=== PATIENT | male | born 1930 | race Caucasian/White ===

== ENCOUNTER 2017-10-06 23:27 | Inpatient (IN) | payer MEDICARE ==
[~2017-10-06] VITALS: Ht 165.1 cm; Wt 82.6 kg
--- NOTE | ~2017-10-06 | OP ---
PATIENT NAME: UMAIR MOURA MEDICAL RECORD: [id number] :[birth year] LOCATION:D.M2 D.2126 ADMISSION DATE:10/06/17 SURGEON: MELISSA MORTON MD DATE OF OPERATION: 10/07/2017 PROCEDURES: 1. PTCA stent vein graft to left circumflex. 2. Left heart catheterization. 3. Selective coronary angiography. 4. Left ventriculogram. 5. Vein graft angiography. 6. MONTEIRO angiography. INDICATION: Unstable angina. PROCEDURE IN DETAIL: After informed consent was obtained and after a detailed description of risks, benefits as well as alternative therapies, the patient elected to proceed with angiogram and angioplasty. The right femoral area was prepped and draped in normal sterile fashion. Right femoral artery was cannulated via modified Seldinger technique with placement of 6-Croatian sheath. All catheters exchanged through this sheath. FINDINGS: Left ventriculogram was performed in standard 30-degree BOBO view, reveals global hypokinesis, ejection fraction 30%. SELECTIVE CORONARY ANGIOGRAPHY: 1. Left main is with no significant angiographic disease. 2. There is a ramus intermedius that has 99% stenosis. This is not grafted. 3. The left anterior descending is totally occluded. 4. The left circumflex is totally occluded. 5. The right coronary artery is totally occluded. 6. MONTEIRO to the LAD is widely patent. Distal LAD is widely patent. 7. Vein graft to the circumflex is patent with a 99% stenosis in the proximal vessel. 8. Vein graft to the right coronary artery is patent with 95% stenosis in the proximal vessel. PTCA STENT OF THE VEIN GRAFT TO THE LEFT CIRCUMFLEX: The stent used was a 3.5 x 15 and 4.0 x 18, both Nekoma stents. Result was 0% residual stenosis. OVERALL IMPRESSION: Successful percutaneous transluminal coronary angioplasty stent of the vein graft to the left circumflex going from 99% initial stenosis to 0% residual. PLAN: PTCA stent of the vein graft to the RCA in the a.m. TRANSINT:[id number] Voice Confirmation ID: [id number] DOCUMENT ID: [id number] OPERATIVE REPORT [id number] ZENYMELISSA WRIGHT MD at 1006 CC: [id number] DICTATION DATE: 10/07/17 1156 AIRCRAFT GENERAL REPAIR MECHANIC: 10/07/17 1314 ADM IN [facility] [address] [place] [address]
--- NOTE | ~2017-10-06 | HEMODYNAMI ---
PATIENT:UMAIR MOURA MEDICAL RECORD: [id number] : [birth year] LOCATION:[facility] D.2126 ADMISSION DATE: 10/08/17 Generatedon:10/09/201711:02 Patient name: UMAIR MOURA Patient #: [id number] SSN: : 1930 Date of study: 10/09/2017 Page: Of Hemodynamic Procedure Report Patient Data Patient Demographics Procedure consent was obtained First Name: UMAIR Gender: Male Last Name: ZENY : 1930 Patient #: [id number] Age: 87 year(s) Race: Unknown Additional ID: [id number] Contact details [address]: [address] [place] [address] State: [place] City: [place] Zip code: [address] Past Medical History Allergies Allergen Reaction Date Comments Reported Other allergy 10/09/2017 Iodine, atorvastatin Admission Admission Data Admission Date: 10/08/2017 Admission Time: 14:00 Room #: D.2126 Lab Results Lab Result Date: 10/09/2017 Lab Result Time: 0:00 Biochemistry Name Units Result Min Max BUN mg/dl 33 --(----)-* 7 18 Creatinine mg/dl 1.7 --(----)-* 0.6 1.3 CBC Name Units Result Min Max Hemoglobin g/dl 14.3 --(*---)-- 13.5 17.5 Procedure Procedure Types Cath Procedure Diagnostic Procedure PCI Procedure Coronary Stent AMI/SVG/PITCH GATHERER PTCA or Stent SVG-BMS/HERMELINDA Initial Procedure Description Procedure Date Procedure Date: 10/09/2017 Procedure Start Time: 10:46 Procedure End Time: 11:01 Procedure Staff Name Function Calin Daniels MD Performing Physician Yadiel Partida RT Monitor Roro Varghese RT Scrub Kendra Engel RN Nurse Ottoniel Penn RT Folding Machine Tender Rajiv Fisher RN Folding Machine Tender Procedure Data Cath Procedure Contrast Material Contrast Material Type Amount (ml) Isovue 370 31 Entry Location Entry Primary Successful Side Size Upsize Upsize Entry Closure Succes sful Closure Location (Fr) 1 (Fr) 2 (Fr) Remarks Device Remarks Femoral Left 6 Fr Exoseal artery Short Estimated blood loss: 10 ml Procedure Complications No complications Procedure Medications Medication Administration Route Dosage Solumedrol I.V. 125 mg 0.9% NaCl I.V. 100 ml/hr Oxygen NC 2 l/min Lidocaine 2% added to field 20 Heparin Flush Bag added to field 2 bags (1000units/500ml NS) Pepcid I.V. 20 mg Heparin Bolus I.V. 4000 units Fentanyl I.V. 50 mcg Fentanyl I.V. 50 mcg Hemodynamics Rest Heart Rate: 83 (bpm) Snapshots Pre Cath Intra NCS Post Cath Vital Signs Time Heart Resp SPO2 etCO2 NIBP (mmHg) Rhythm Pain Sedation Rate (ipm) (%) (mmHg) Status Level (bpm) 10:38:56 76 18 98 145/83(108) NSR 0 (11) 10(A) , No pain 10:43:39 80 26 98 24.8 142/87(116) NSR 0 (11) 10(A) , No pain 10:48:18 86 196 97 34.6 141/82(122) NSR 0 (11) 10(A) , No pain 10:53:00 78 14 97 32.3 142/87(107) NSR 0 (11) 10(A) , No pain 10:57:35 83 11 96 28.6 133/89(117) NSR 0 (11) 10(A) , No pain 11:02:16 30.8 No Cuff NSR 0 (11) 10(A) , No pain Medications Time Medication Route Dose Verified Delivered Reason Notes Effectiveness by by 10:37:06 Solumedrol I.V. 125 Calin Gardner Per physician mg Jeremiah Engel RN 10:37:14 0.9% NaCl I.V. 100 Calin Kendra Per physician ml/hr Jeremiah Engel RN 10:37:27 Oxygen NC 2 Calin Gardner used for l/min Jeremiah Engel RN procedure 10:37:41 Lidocaine 2% added 20ml Calin Layton for local to vial Jeremiah Daniels MD anesthetic field 10:37:49 Heparin Flush added 2 Calin Layton used for Bag to bags Jeremiah Daniels MD procedure (1000units/500ml field NS) 10:40:11 Pepcid I.V. 20 mg Calin Gardner Per physician Jeremiah Engel RN 10:43:06 Fentanyl I.V. 50 Calin Gardner for sedation mcg Jeremiah Engel RN 10:46:45 Heparin Bolus I.V. 4000 Calin Gardner for verifi ed units Jeremiah Engel RN anticoagulation with dr daniels 10:51:50 Fentanyl I.V. 50 Calin Gardner for sedation mcg Jeremiah Engel RN Procedure Log Time Note 10:15:52 Ottoniel Penn RT(R) sent for patient. Start room use. 10:21:28 Signed procedure consent form obtained from patient. 10:21:30 Time tracking: Regular hours (M-F 7:00 - 5:00) 10:21:34 Plan of Care:Hemodynamics will remain stable., Cardiac rhythm will remain stable., Comfort level will be maintained., Respiratory function will remain adequate., Patient/ family verbilizes understanding of procedure., Procedure tolerated without complication., Recovers from procedure without complications.. 10:21:52 H&P Date Dictated: 10/06/2017 Within 30 days and on chart.. 10:22:32 Lab Result : Creatinine 1.7 mg/dl 10:22:32 Lab Result : BUN 33 mg/dl 10:22:32 Lab Result : Hemoglobin 14.3 g/dl 10:28:00 Patient received from Med II to CCL 1 Alert and oriented. Tansferred to table in Supine position. 10:28:03 Warm blankets applied, and jeremy hugger turned on for patient comfort. 10:28:04 Correct patient and procedure confirmed by team. 10:28:05 ECG and BP/O2 sat monitors applied to patient. 10:28:34 Pre-procedure instructions explained to patient. 10:28:35 Pre-op teaching completed and patient verbalized understanding. 10:28:36 Family in waiting room. 10:29:15 [facility] a 22 gauge IV catheter with 0.9% NaCl at KVO. 10:37:06 Solumedrol 125 mg I.V. was administered by Kendra Engel RN; Per physician; 10:37:14 0.9% NaCl 100 ml/hr I.V. was administered by Kendra Engel RN; Per physician; 10:37:27 Oxygen 2 l/min NC was administered by Kendra Engel RN; used for procedure; 10:37:41 Lidocaine 2% 20ml vial added to field was administered by Calin Daniels MD; for local anesthetic; 10:37:49 Heparin Flush Bag (1000units/500ml NS) 2 bags added to field was administered by Calin Daniels MD; used for procedure; 10:38:00 Vital chart was started 10:39:44 IV CATHETER 22g opened to sterile field. 10:39:50 Baseline sample Acquired. 10:39:53 Rhythm: sinus rhythm 10:39:55 Full Disclosure recording started 10:40:10 Patient allergic to Other allergyIodine, atorvastatin 10:40:11 Pepcid 20 mg I.V. was administered by Kendra Engel RN; Per physician; 10:40:11 Is the patient allergic to Iodine/contrast media? Yes. 10:40:12 Was the patient premedicated? Yes 10:40:14 Is patient on blood thinner?Yes 10:40:18 ACC The patient was administered the following blood thiners within the last 24 hours: ACCPlavix 10:40:58 Patient diabetic? No. 10:41:02 Previous problem with sedation/anesthesia? No ? 10:41:03 Snore? Yes 10:41:04 Sleep apnea? No 10:41:05 Deviated septum? No 10:41:07 Opens mouth fully? Yes 10:41:08 Sticks out tongue? Yes 10:41:10 Airway obstruction? No ? 10:41:12 Dentures? N/A ? 10:41:13 Dentures? No ? 10:41:16 Pre procedure: left dorsailis pedis pulse 2+ Normal; easily identifiable; not easily obliterated 10:41:18 Patient pain scale 0/10 ?. 10:41:20 Lab results completed and on chart. 10:41:22 Left groin area was prepped with chlora-prep and draped in sterile fashion 10:41:23 Alarms reviewed by R. N. 10:41:23 Sharps counted by scrub and verified by R.N. 10:41:26 ACIST Syringe (67924) opened to sterile field. 10:41:27 Bag Decanter (2002S) opened to sterile field. 10:41:27 Medline Cath Pack ([id number]) opened to sterile field. 10:41:28 DIAGNOSTIC WIRE .035 260cm J wire (708723) opened to sterile field. 10:41:30 ACIST Manifold (33242) opened to sterile field. 10:41:31 ACIST Hand Control (63473) opened to sterile field. 10:41:32 Tegaderm 4 x 4 (1626W) opened to sterile field. 10:41:32 PERCUTANEOUS ENTRY 19GA needle opened to sterile field. 10:41:53 SHEATH Prelude 6Fr 0.035 (HYQ-5S-81-035) opened to sterile field. 10:41:53 INFLATOR Merit BasixCompak (UD3617) opened to sterile field. 10:42:01 CHOICE PT Extra Support 182cm wire ([id number]) opened to sterile field. 10:42:08 Physician arrived 10:42:09 --------ALL STOP TIME OUT------ 10:42:09 Final Timeout: patient, procedure, and site verified with staff and physician. All members of the team are in agreement. 10:42:11 Left groin site verified by team. 10:42:13 Physical assessment completed. ASA score P 2 - A patient with mild systemic disease as per Calin Daniels MD. 10:42:16 Sedation plan: IV Moderate Sedation Medication:Versed, Fentanyl 10:43:06 Fentanyl 50 mcg I.V. was administered by Kendra Engel RN; for sedation; 10:45:05 Zero performed for pressure channel P1 10:46:12 Procedure started. 10:46:16 Local anesthetic to left femerol artery with Lidocaine 2% by Calin Daniels MD.INITIAL ACCESS ONLY 10:46:25 A 6 Fr Short sheath was inserted into the Left Femoral artery 10:46:45 Heparin Bolus 4000 units I.V. was administered by Kendra Engel RN; for anticoagulation; verified with dr daniels 10:47:12 GUIDE 6FR AR 2.0 SH catheter ([id number]) opened to sterile field. 10:47:19 6 Fr AR 2 SH guide catheter was inserted over the wire 10:47:32 choice pt wire advanced. 10:47:55 Wire advanced across lesion. 10:49:54 Inflate balloon Inflation number: 1 A EUPHORA 4.0 x 15 Balloon ([id number]) was prepped and advanced across the Aorta Right -> Dist RCA, then inflated to 9 TUNG for 0:10 (min:sec). 10:50:22 Inflation number: 2 The EUPHORA 4.0 x 15 Balloon ([id number]) was reinflated across the Aorta Right -> Dist RCA, to 9 TUNG for 0:10 (min:sec). 10:50:38 Inflation number: 3 The EUPHORA 4.0 x 15 Balloon ([id number]) was reinflated across the Aorta Right -> Dist RCA, to 23 TUNG for 0:10 (min:sec). 10:51:27 Balloon re-inserted over wire. 10:51:50 Fentanyl 50 mcg I.V. was administered by Kendra Engel RN; for sedation; 10:52:52 Place stent Inflation Number: 4 A PADMA RX 4.0 x 15 stent ([id number]) was prepped and advanced across the Aorta Right -> Dist RCA. The stent was deployed at 23 TUNG for 0:10 (min:sec). 10:55:07 Stent catheter was removed intact over wire. 10:55:08 Wire removed. 10:55:08 Guide catheter removed. 10:55:15 EXOSEAL 6Fr (EX600) opened to sterile field. 10:55:24 Sheath removed intact; hemostasis achieved with Exoseal to the Left Femoral artery. 10:55:25 Procedure ended.(Physican Out) 10:56:27 Contrast amount:Isovue 370 31ml. 10:58:33 Insertion/operative site no bleeding no hematoma. 10:58:35 Post-op/insertion site Left Femoral artery dressed using a 4 x 4 and Tegaderm. 10:58:47 Post left femerol artery:stable, soft, clean and dry 10:58:48 Post Procedure Pulses reassessed and unchanged 10:58:51 Post-procedure physical assessment completed. ASA score P 2 - A patient with mild systemic disease as per Calin Daniels MD. 10:58:54 Post procedure rhythm: unchanged. 11:00:15 Estimated blood loss: 10 ml 11:00:16 Post procedure instruction explained to patient.Patient verbalizes understanding. 11:00:16 Patient needs reinforcement of post procedure teaching. 11:00:27 Procedure type changed to Cath procedure, Diagnostic procedure, PCI procedure, Coronary Stent, AMI/SVG/PITCH GATHERER PTCA or Stent, SVG-BMS/HERMELINDA Initial 11:01:31 Procedure and supply charges have been captured, reviewed, submitted and are correct. 11:01:35 Procedure Complication : No complications 11:01:36 Vital chart was stopped 11:01:37 See physician's report for complete and final results. 11:01:38 Report given to PCU. 11:01:53 Patient transfered to PCU with Stretcher. 11:01:57 Procedure ended. 11:01:57 Full Disclosure recording stopped 11:02:00 End room use (Document Last) Intervention Summary Intervention Notes Time ActionType Lesion and Equipment Used Action# Pressure Duration Attributes 10:49:54 Inflate Aorta Right EUPHORA 4.0 x 1 9 00:10 balloon -> Dist RCA 15 Balloon ([id number]) 10:50:22 Reinflate Aorta Right EUPHORA 4.0 x 2 9 00:10 balloon -> Dist RCA 15 Balloon ([id number]) 10:50:38 Reinflate Aorta Right EUPHORA 4.0 x 3 23 00:10 balloon -> Dist RCA 15 Balloon ([id number]) 10:52:52 Place stent Aorta Right PADMA RX 4.0 x 4 23 00:10 -> Dist RCA 15 stent ([id number]) Device Usage Item Name Manufacture Quantity Catalog Number Hospital Part Current Minimal Lot# / Charge Number Stock Stock Serial# Code IV CATHETER 22g B. Esqueda 1 [id number] [id number] 801843 676027 5 ACIST Syringe Acist 1 05091 213184 746752 974934 20 (24415) [employer] Bag Decanter Microtek 1 2001S 743669 06937 694207 5 () Medical Inc. Medline Cath Cardinal 1 [id number] 461884 92025 972270 5 [facility] ([id number]) DIAGNOSTIC WIRE St Geoff 1 211995 203411 442070 509093 30 .035 260cm J wire (007652) ACIST Manifold Acist 1 67023 101144 340770 546974 5 (04940) [employer] Inc ACIST Hand Acist 1 19254 519994 193297 186376 5 Control (55744) [employer] Systems Inc Tegaderm 4 x 4 3M 1 1626W 063907 253668 117914 5 (1626W) PERCUTANEOUS Cook Medical 1 [id number] 090350 612088 5 ENTRY 19GA needle SHEATH Prelude Merit 1 [id number] 661272 0192483 099362 5 6Fr 0.035 Medical ([id number]-[id number]) INFLATOR Merit Merit 1 AH8236 487803 340940 387295 15 BasixCompak Medical (ZZ6440) CHOICE PT Extra Franklin 1 [id number] 357325 493983 478937 5 Support 182cm Scientific wire ([id number]) GUIDE 6FR AR Medtronic 1 [id number] 899590 14976 214810 1 2.0 SH catheter ([id number]) EUPHORA 4.0 x Medtronic 1 [id number] 751778 588235 642815 5 [id number] 15 Balloon ([id number]) PADMA RX 4.0 x Medtronic 1 [id number] 185913 3776006 456755 5 [id number] 15 stent ([id number]) EXOSEAL 6Fr Cardinal 1 EX600 348592 582050 567290 10 (EX600) Health Signature Audit [place] Stage Time Signature Unsigned Intra-Procedure 10/09/2017 Yadiel Partida 11:02:42 AM RT(R) Signatures Monitor : Yadiel Partida RT Signature : Date : Time : [place] [id number] [facility] [place] [address]
--- NOTE | ~2017-10-06 | DS ---
PATIENT:UMAIR RICO :[birth year] MEDICAL RECORD: [id number] DISCHARGE SUMMARY ADMISSION DATE: 10/08/17 DISCHARGE DATE: 10/10/17 DISCHARGE DIAGNOSES: 1. Angina. 2. Coronary artery disease. 3. Percutaneous transluminal coronary angioplasty stent vein graft to circumflex and right coronary artery this admission. 4. Hyperlipidemia. HOSPITAL COURSE: Mr. Rico presents with unstable angina and found to have significant disease of the vein graft to left circumflex and to the RCA. He underwent successful PTCA stent of both territories, had an uneventful postop course, and discharged home with the addition of aspirin and Plavix to his medical regimen. He will follow up with [facility] in 1 month. TRANSINT:[id number] Voice Confirmation ID: [id number] DOCUMENT ID: [id number] MELISSA MORTON MD at 1630 CC: [id number] DICTATION DATE: 10/10/17 0811 CAKE DECORATOR: 10/10/17 1552 DIS IN 10/10/17 [facility] [address] [place] [address]
--- NOTE | ~2017-10-06 | OP ---
PATIENT NAME: UMAIR MOURA MEDICAL RECORD: [id number] :[birth year] LOCATION:D.M2 D.2126 ADMISSION DATE:10/08/17 SURGEON: MELISSA MORTON MD DATE OF OPERATION: 10/09/2017 PROCEDURES: 1. PTCA stent, vein graft to RCA. 2. Selective coronary and vein graft angiography. INDICATION: Angina and coronary artery disease. DESCRIPTION OF PROCEDURE: After informed consent was obtained and after detailed explanation of risks, benefits as well as alternative therapies, the patient elected to proceed with angiogram and angioplasty. The right femoral area was prepped and draped in normal sterile fashion. Right femoral artery was cannulated via modified Seldinger technique with placement of 6-Haitian sheath. All catheter exchanged through the sheath. FINDINGS: The right coronary vein graft has a 90% stenosis in the proximal aspect. This was addressed with a 4.0 x 15 mm Timothy stent, taken to 23 atmospheres. Result was 0% residual stenosis. OVERALL IMPRESSION: Successful percutaneous transluminal angioplasty stent of the vein graft to the RCA going from 90+ percent initial stenosis to 0% residual stenosis. TRANSINT:[id number] Voice Confirmation ID: [id number] DOCUMENT ID: [id number] MELISSA MORTON MD at 1730 CC: [id number] DICTATION DATE: 10/09/17 1058 BACCARAT MANAGER: 10/09/[address] [facility] [address] [place] [id number]
--- NOTE | ~2017-10-06 | HEMODYNAMI ---
PATIENT:UMAIR MOURA MEDICAL RECORD: [id number] : [birth year] LOCATION:[facility] D.2126 ADMISSION DATE: 10/06/17 Generatedon:10/07/201711:59 Patient name: UMAIR MOURA Patient #: [id number] SSN: : 1930 Date of study: 10/07/2017 Page: Of Hemodynamic Procedure Report Patient Data Patient Demographics Procedure consent was obtained First Name: UMAIR Gender: Male Last Name: ZENY : 1930 Patient #: [id number] Age: 87 year(s) Race: Unknown Additional ID: [id number] Contact details Address: [address] [place] [address] State: [place] City: [place] Zip code: [address] Admission Admission Data Admission Date: 10/06/2017 Admission Time: 23:27 Room #: D.2126 Procedure Procedure Types Cath Procedure Diagnostic Procedure LHC LHC w/Coronaries w/Grafts Sedation Charges Moderate Sedation up to 15 minutes PCI Procedure AMI/SVG/GAS BLENDER PTCA or Stent SVG-BMS/HERMELINDA Initial Procedure Description Procedure Date Procedure Date: 10/07/2017 Procedure Start Time: 11:34 Procedure End Time: 11:56 Procedure Staff Name Function Calin Daniels MD Performing Physician Fabi Sotelo RT Monitor Kendra Engel RN Nurse Cecy Duval RT Scrub Procedure Data Cath Procedure Fluoroscopy Diagnostic fluoroscopy Total fluoroscopy Time: 5.1 time: 5.1 min min Diagnostic fluoroscopy Total fluoroscopy dose: 452 dose: 452 mGy mGy Contrast Material Contrast Material Type Amount (ml) Isovue 300 116 Entry Location Entry Primary Successful Side Size Upsize Upsize Entry Closure Succes sful Closure Location (Fr) 1 (Fr) 2 (Fr) Remarks Device Remarks Femoral Right 5 Fr 6 Fr Exoseal artery Short Estimated blood loss: 5 ml Diagnostic catheters Device Type Used For End Catheter Placement MULTIPACK Pigtail 5 Fr LV Angiography catheter MULTIPACK JL 4.0 5Fr Left Coronary catheter Angiography MULTIPACK 3DRC 5Fr Multi-vessel catheter Angiography DIAGNOSTIC AR 2 MOD 5 Fr Multi-vessel catheter ([id number]) Angiography Procedure Complications No complications Procedure Medications Medication Administration Route Dosage Oxygen etCO2 Nasal cannula 2 l/min Heparin Flush Bag added to field 2 bags (1000units/500ml NS) 0.9% NaCl I.V. 100 ml/hr Plavix P.O. 600 mg Fentanyl I.V. 50 mcg Versed I.V. 1 mg Fentanyl I.V. 50 mcg Versed I.V. 1 mg Heparin Bolus I.V. 5000 units Integrilin (Bolus I.V. 7.3 ml 2mg/ml) Cardene I.C. 300 mcg Nitroglycerin IC/IA I.C. 200 mcg Cardene I.C. 300 mcg Cardene I.C. 300 mcg Integrilin (Bolus wasted 2.7 ml 2mg/ml) Hemodynamics Rest Heart Rate: 88 (bpm) Snapshots Pre Cath Intra NCS Post Cath Vital Signs Time Heart Resp SPO2 etCO2 NIBP (mmHg) Rhythm Pain Sedation Rate (ipm) (%) (mmHg) Status Level (bpm) 11:26:30 86 17 98 0 146/91(113) NSR 0 (11) 10(A) , No pain 11:31:29 92 21 92 23.3 Measuring NSR 0 (11) 10(A) , No pain 11:31:45 93 13 93 19.5 123/102(121) NSR 0 (11) 10(A) , No pain 11:36:08 80 32 88 0 141/71(111) NSR 0 (11) 9(A) , No pain 11:41:07 86 31 96 0 Measuring NSR 0 (11) 9(A) , No pain 11:42:31 84 18 94 15.7 Time NSR 0 (11) 9(A) Exceeded , No pain 11:46:18 82 17 92 24.8 Measuring NSR 0 (11) 9(A) , No pain 11:47:38 83 19 93 24.8 Time NSR 0 (11) 9(A) Exceeded , No pain 11:52:00 94 15 98 21.8 150/66(104) NSR 0 (11) 9(A) , No pain 11:56:12 89 17 96 0 134/80(106) NSR 0 (11) 9(A) , No pain Medications Time Medication Route Dose Verified Delivered Reason Notes Effectiveness by by 11:29:00 Oxygen etCO2 2 Calin Vance Per physician Nasal l/min Jeremiah Fisher RN cannula 11:29:10 Heparin Flush added 2 Calin Vance used for Bag to bags Jeremiah Fisher RN procedure (1000units/500ml field NS) 11:29:22 0.9% NaCl I.V. 100 Calin Vance Per physician ml/hr Jeremiah Fisher RN 11:29:33 Plavix P.O. 600 Calin Vance for mg Jeremiah Fisher RN antiplatelet therapy 11:32:19 Fentanyl I.V. 50 Calin Vance for sedation mcg Jeremiah Fisher RN 11:32:29 Versed I.V. 1 mg Calin Vance for sedation Jeremiah Fisher RN 11:43:20 Fentanyl I.V. 50 Calin Romany for sedation mcg Jeremiah Fisher RN 11:43:24 Versed I.V. 1 mg Calin Vance for sedation Jeremiah Fisher RN 11:43:34 Heparin Bolus I.V. 5000 Calin Vance for units Jeremiah Fishre RN anticoagulation 11:43:48 Integrilin I.V. 7.3 Calin Vance for (Bolus 2mg/ml) ml Jeremiah Fisher RN antiplatelet therapy 11:50:09 Cardene I.C. 300 Calin Vance for mcg Jeremiah Fisher RN vasodilation 11:51:33 Cardene I.C. 300 Calin Romany for mcg Jeremiah Fisher RN vasodilation 11:51:40 Nitroglycerin I.C. 200 Calin Vance for IC/IA pricila Fisher RN vasodilation 11:52:20 Cardene I.C. 300 Calin Rajiv for mcg Jeremiah Fisher RN vasodilation 11:56:31 Integrilin wasted 2.7 Calin Vance for (Bolus 2mg/ml) ml Jeremiah Fisher RN antiplatelet therapy Procedure Log Time Note 10:45:37 Fabi Sotelo RT(R) sent for patient. Start room use. 11:08:38 Time tracking: Regular hours (M-F 7:00 - 5:00) 11:08:42 Plan of Care:Hemodynamics will remain stable., Cardiac rhythm will remain stable., Comfort level will be maintained., Respiratory function will remain adequate., Patient/ family verbilizes understanding of procedure., Procedure tolerated without complication., Recovers from procedure without complications.. 11:11:06 Patient received from PCU to CCL 3 Alert and oriented. Tansferred to table in Supine position. 11:11:07 Warm blankets applied, and jeremy hugger turned on for patient comfort. 11:11:07 Correct patient and procedure confirmed by team. 11:11:09 Signed procedure consent form obtained from patient. 11:11:10 ECG and BP/O2 sat monitors applied to patient. 11:25:11 Vital chart was started 11:25:12 Baseline sample Acquired. 11:25:16 Rhythm: sinus rhythm 11:25:18 Full Disclosure recording started 11:25:22 H&P Date Dictated: 10/07/2017 Within 30 days and on chart., H&P Addendum completed by physician on day of procedure. (MUST COMPLETE FOR ALL OUTPATIENTS). 11:25:24 Pre-procedure instructions explained to patient. 11:25:24 Pre-op teaching completed and patient verbalized understanding. 11:25:26 Family in waiting room. 11:25:28 Patient NPO since Midnight. 11:25:34 Is the patient allergic to Iodine/contrast media? Yes. 11:25:35 Was the patient premedicated? Yes 11:25:36 Is patient on blood thinner?Yes 11:25:40 ACC The patient was administered the following blood thiners within the last 24 hours: ACCPlavix 11:25:43 Patient diabetic? No. 11:25:46 Previous problem with sedation/anesthesia? No ? 11:25:47 Snore? Yes 11:25:48 Sleep apnea? No 11:25:49 Deviated septum? No 11:25:50 Opens mouth fully? Yes 11:25:51 Sticks out tongue? Yes 11:25:55 Airway obstruction? No ? 11:26:01 Dentures? No ? 11:26:05 Pre procedure: right dorsailis pedis pulse 1+ Palpable, but thready & weak; easily obliterated 11:26:07 Pre procedure: left dorsailis pedis pulse 1+ Palpable, but thready & weak; easily obliterated 11:26:08 Patient pain scale 0/10 ?. 11:26:17 IV patent on arrival in right forearm with 0.9% NaCl at [facility]. 11:26:19 Lab results completed and on chart. 11:26:23 Right groin area was prepped with chlora-prep and draped in sterile fashion 11::24 Alarms reviewed by R. N. 11::24 Sharps counted by scrub and verified by R.N. 11:26:25 Physician arrived 11:: --------ALL STOP TIME OUT------ 11:: Final Timeout: patient, procedure, and site verified with staff and physician. All members of the team are in agreement. 11:26:28 Right groin site verified by team. 11:26:31 Physical assessment completed. ASA score P 2 - A patient with mild systemic disease as per Calin Daniels MD. 11:26:36 Sedation plan: IV Moderate Sedation Medication:Versed, Fentanyl 11:27:49 Use device set Femoral Dx 11:27:50 ACIST Syringe (74586) opened to sterile field. 11:27:50 Bag Decanter (2002S) opened to sterile field. 11:27:51 Medline Cath Pack ([id number]) opened to sterile field. 11:27:51 DIAGNOSTIC WIRE .035 260cm J wire (321705) opened to sterile field. 11:27:52 ACIST Hand Control (06752) opened to sterile field. 11:27:53 ACIST Manifold (93966) opened to sterile field. 11:27:54 DIAGNOSTIC Multipack 5Fr catheter set ([id number]) opened to sterile field. 11:27:54 Tegaderm 4 x 4 (1626W) opened to sterile field. 11:27:57 SHEATH Prelude 5Fr 0.035 (AYO-9I-25-035) opened to sterile field. 11:29:00 Oxygen 2 l/min etCO2 Nasal cannula was administered by Rajiv Fisher RN; Per physician; 11:29:10 Heparin Flush Bag (1000units/500ml NS) 2 bags added to field was administered by Rajiv Fisher RN; used for procedure; 11:29:22 0.9% NaCl 100 ml/hr I.V. was administered by Rajiv Fisher RN; Per physician; 11:29:33 Plavix 600 mg P.O. was administered by Rajiv Fisher RN; for antiplatelet therapy; 11:32:19 Fentanyl 50 mcg I.V. was administered by Rajiv Fisher RN; for sedation; 11:32:29 Versed 1 mg I.V. was administered by Rajiv Fisher RN; for sedation; 11:32:37 Procedure started. 11:34:22 Local anesthetic to right femoral artery with Lidocaine 2% by Calin Daniels MD.INITIAL ACCESS ONLY 11:34:30 A 5 Fr sheath was inserted into the Right Femoral artery 11:35:51 A MULTIPACK Pigtail 5 Fr catheter was advanced over the wire and used for LV Angiography. 11:36:05 LV hemodynamics recorded. 11:36:06 LV gram done using BOBO 11:36:10 Injector settings: Ml/sec: 5, Volume: 15, 11:36:23 EF : 30 % 11:36:51 A MULTIPACK JL 4.0 5Fr catheter was advanced over the wire and used for Left Coronary Angiography. 11:37:07 LCA angiography performed. 11:37:10 Injector settings: Ml/sec: 3, Volume: 6, 11:37:43 SHEATH 6Fr Prelude ([id number]) opened to sterile field. 11:38:17 Catheter removed. 11:38:24 A MULTIPACK 3DRC 5Fr catheter was advanced over the wire and used for Multi-vessel Angiography. 11:38:28 MONTEIRO angiography performed. 11:39:32 Catheter removed. 11:39:52 A DIAGNOSTIC AR 2 MOD 5 Fr catheter ([id number]) was advanced over the wire and used for Multi-vessel Angiography. 11:40:25 SVG to RCA angiography performed. 11:40:59 SVG to Circ angiography performed. 11:41:29 Catheter removed. 11:41:47 GUIDE 6FR AR 2.0 SH catheter ([id number]) opened to sterile field. 11:41:49 INFLATOR Merit BasixCompak (KP9280) opened to sterile field. 11:41:50 SHEATH 6Fr Prelude ([id number]) opened to sterile field. 11:42:06 CHOICE PT Extra Support 182cm wire ([id number]) opened to sterile field. 11:43:07 Sheath upsized to a 6 Fr Short. 11:43:15 6 Fr ar 2 sh guide catheter was inserted over the wire 11:43:20 Fentanyl 50 mcg I.V. was administered by Rajiv Fisher RN; for sedation; 11:43:20 choice pt wire advanced. 11:43:22 Wire advanced across lesion. 11:43:24 Versed 1 mg I.V. was administered by Rajiv Fisher RN; for sedation; :43:34 Heparin Bolus 5000 units I.V. was administered by Rajiv Fisher RN; for anticoagulation; 11:43:48 Integrilin (Bolus 2mg/ml) 7.3 ml I.V. was administered by Rajiv Fisher RN; for antiplatelet therapy; :44:28 Vital chart was stopped 11:44:29 Vital chart was started 11:46:20 Place stent Inflation Number: 1 A PADMA RX 3.5 x 15 stent ([id number]) was prepped and advanced across the Aorta Left -> Mid CX. The stent was deployed at 13 TUNG for 0:10 (min:sec). 11:46:26 Stent catheter was removed intact over wire. 11:48:23 Place stent Inflation Number: 2 A PADMA RX 4.0 x 18 stent ([id number]) was prepped and advanced across the Aorta Left -> Mid CX. The stent was deployed at 13 TUNG for 0:10 (min:sec). 11:50:09 Cardene 300 mcg I.C. was administered by Rajiv Fisher RN; for vasodilation; 11:51:33 Cardene 300 mcg I.C. was administered by Rajiv Fisher RN; for vasodilation; 11:51:40 Nitroglycerin IC/IA 200 mcg I.C. was administered by Rajiv Fisher RN; for vasodilation; 11:52:12 Stent catheter was removed intact over wire. 11:52:12 Wire removed. 11:52:13 Guide catheter removed. 11:52:20 Cardene 300 mcg I.C. was administered by Rajiv Fisher RN; for vasodilation; 11:52:20 EXOSEAL 6Fr (EX600) opened to sterile field. 11:54:57 Sheath removed intact; hemostasis achieved with Exoseal to the Right Femoral artery. 11:54:59 Procedure ended.(Physican Out) 11:55:03 Fluoroscopy time 05.10 minutes. 11:55:06 Fluoroscopy dose: 452 mGy 11:55:06 Flurop Dose total: 452 11:55:10 Contrast amount:Isovue 300 116ml. 11:55:11 Sharps counted by scrub and verified by R.N. 11:55:13 Insertion/operative site no bleeding no hematoma. 11:55:16 Post-op/insertion site Right Femoral artery dressed using a 4 x 4 and Tegaderm. 11:55:18 Post right femoral artery:stable 11:55:20 Post Procedure Pulses reassessed and unchanged 11:55:22 Post procedure rhythm: unchanged. 11:55:25 Estimated blood loss: 5 ml 11:55:26 Post procedure instruction explained to patient.Patient verbalizes understanding. 11:55:27 Patient needs reinforcement of post procedure teaching. 11:55:48 Procedure type changed to Cath procedure, Diagnostic procedure, LHC, LHC w/Coronaries w/Grafts, Sedation Charges, Moderate Sedation up to 15 minutes, PCI procedure, AMI/SVG/GAS BLENDER PTCA or Stent, SVG-BMS/HERMELINDA Initial 11:55:49 Procedure and supply charges have been captured, reviewed, submitted and are correct. 11:55:54 Procedure Complication : No complications 11:55:56 See physician's report for complete and final results. 11:56:02 Report given to [facility] II. 11:56:05 Patient transfered to Med II with Stretcher. 11:56:07 Procedure ended. 11:56:07 Full Disclosure recording stopped 11:56:16 ACC-PCI Only Patient was given prescriptions, or instructed by Calin Daniels MD to start/continue the following medications upon discharge: Plavix 11:56:19 End room use (Document Last) 11:56:31 Integrilin (Bolus 2mg/ml) 2.7 ml wasted was administered by Rajiv Fisher RN; for antiplatelet therapy; 11:59:43 Vital chart was stopped Intervention Summary Intervention Notes Time ActionType Lesion and Equipment Used Action# Pressure Duration Attributes 11:46:20 Place stent Aorta Left PADMA RX 3.5 x 1 13 00:10 -> Mid CX 15 stent ([id number]) 11:48:23 Place stent Aorta Left PADMA RX 4.0 x 2 13 00:10 -> Mid CX 18 stent ([id number]) Device Usage Item Name Manufacture Quantity Catalog Number Hospital Part Current Minimal Lot# / Charge Number Stock Stock Serial# Code ACIST Syringe Acist 1 02899 449892 589319 445843 20 (04005) [employer] Bag Decanter Microtek 1 2001S 198269 00809 840178 5 (2001S) Medical Inc. Medline Cath Cardinal 1 [id number] 412906 48391 206334 5 Pack Health ([id number]) DIAGNOSTIC WIRE St Geoff 1 136122 698168 977978 055620 30 .035 260cm J wire (636453) ACIST Hand Acist 1 73352 980284 544754 159403 5 Control (77374) [employer] ACIST Manifold Acist 1 54307 886593 111737 337004 5 (63468) [employer] DIAGNOSTIC Cardinal 1 [id number] 279215 00349 957127 30 Multipack 5Fr Health catheter set ([id number]) Tegaderm 4 x 4 3M 1 1626W 649762 015575 265906 5 (1626W) SHEATH Prelude Merit 1 UCF-7M-22-035 101569 497659 603503 5 5Fr 0.035 Medical (PRQ-1U-66-035) MULTIPACK Cardinal 1 844451 5 Pigtail 5 Fr Health catheter MULTIPACK JL Cardinal 1 034272 5 4.0 5Fr Health catheter SHEATH 6Fr Merit 2 [id number] 458558 513257 828884 5 Prelude Medical ([id number]) MULTIPACK 3DRC Cardinal 1 539632 5 5Fr catheter Health DIAGNOSTIC AR 2 Cardinal 1 [id number] 354317 657355 727109 20 MOD 5 Fr Health catheter ([id number]) GUIDE 6FR AR Medtronic 1 [id number] 891323 97456 741733 1 2.0 SH catheter ([id number]) INFLATOR Merit Merit 1 FW4801 560814 375637 903722 15 RyposokLilLuxe Medical (FX4768) CHOICE PT Extra Lawler 1 [id number] 631307 288945 722190 5 Support 182cm Scientific wire ([id number]) PADMA RX 3.5 x Medtronic 1 [id number] 846127 9710154 252027 5 [id number] 15 stent ([id number]) PADMA RX 4.0 x Medtronic 1 [id number] 077629 6267787 291701 5 [id number] 18 stent ([id number]) EXOSEAL 6Fr Cardinal 1 EX600 442706 109519 021416 10 (EX600) Health Signature Audit [place] Stage Time Signature Unsigned Intra-Procedure 10/07/2017 Fabi Sotelo 11:59:39 AM RT(R) Signatures Monitor : Fabi Sotelo RT Signature : Date : Time : [facility] [address] [place] [address]
[~2017-10-06 23:27] MED LIST: AMBIEN10 MG PO; ASPIRIN81 MG PO; BAYER CHEWABLE81 MG PO; COREG6.25 MG PO; HYDROCODONE-APA1 TAB PO; NEXIUM40 MG PO; PLAVIX75 MG PO; PREDNISONE10 MG PO; ZESTRIL40 MG PO; ZYRTEC10 MG PO
[2017-10-07 03:45] VITALS: BP 184/90; BMI 30.3
[2017-10-07 04:00] VITALS: BP 118/70
[2017-10-07 08:53] VITALS: BP 139/82
[2017-10-07 09:02] LABS: BASOPHILS 0 % (0-2); EOSINOPHILS 0 % (0-7); HEMATOCRIT 45.7 % (42.0-54.0); IMMATURE GRANULOCYTES 0.3 % (0-5); LYMPHOCYTES 21.9 % (15-50); MCH 32.4 pg (26.0-34.0); MCV 92.5 fL (80.0-100.0); MEAN PLATELET VOLUME 10.7 fL (7.4-10.4); MONOCYTES 2.6 % (2-11); NEUTROPHILS 75.2 % (40-80); PLATELET COUNT 236 10x3/uL (130-400); RBC 4.94 10x6/uL (4.20-6.10); RDW 12.6 % (11.5-14.5); WBC 6.5 10x3/uL (4.8-10.8)
[2017-10-07 10:00] LABS: ANION GAP 21.4 mmol/L (8-16); CALCIUM 9.8 mg/dL (8.5-10.1); CREATININE - SERUM 1.8 mg/dL (0.6-1.3); POTASSIUM - SERUM 4.4 mmol/L (3.5-5.1)
[2017-10-07 19:00] VITALS: BP 167/90
[2017-10-08 08:44] VITALS: BP 97/51
[2017-10-08 10:47] LABS: BASOPHILS 0 % (0-2); EOSINOPHILS 0 % (0-7); HEMATOCRIT 41.2 % (42.0-54.0); HEMOGLOBIN 14.3 g/dL (13.5-17.5); IMMATURE GRANULOCYTES 0.3 % (0-5); LYMPHOCYTES 9.7 % (15-50); MCH 32.3 pg (26.0-34.0); MCHC 34.7 g/dL (31.0-37.0); MEAN PLATELET VOLUME 10.8 fL (7.4-10.4); MONOCYTES 7.8 % (2-11); NEUTROPHILS 82.2 % (40-80); PLATELET COUNT 257 10x3/uL (130-400); RBC 4.43 10x6/uL (4.20-6.10); RDW 12.6 % (11.5-14.5)
[2017-10-08 10:55] LABS: WBC 14.3 10x3/uL (4.8-10.8)
[2017-10-08 16:44] VITALS: BP 116/65
[2017-10-08 21:06] VITALS: BP 146/71
[2017-10-09 01:46] VITALS: BP 164/85
[2017-10-09 05:24] LABS: BASOPHILS 0 % (0-2); EOSINOPHILS 0.1 % (0-7); HEMATOCRIT 41.4 % (42.0-54.0); HEMOGLOBIN 14.3 g/dL (13.5-17.5); IMMATURE GRANULOCYTES 0.4 % (0-5); LYMPHOCYTES 19.8 % (15-50); MCH 31.9 pg (26.0-34.0); MCHC 34.5 g/dL (31.0-37.0); MCV 92.4 fL (80.0-100.0); MEAN PLATELET VOLUME 10.6 fL (7.4-10.4); MONOCYTES 10.3 % (2-11); NEUTROPHILS 69.4 % (40-80); PLATELET COUNT 240 10x3/uL (130-400); RBC 4.48 10x6/uL (4.20-6.10); RDW 12.6 % (11.5-14.5); WBC 12.2 10x3/uL (4.8-10.8)
[2017-10-09 05:40] VITALS: BP 135/98
[2017-10-09 05:43] LABS: ANION GAP 16.8 mmol/L (8-16); CALCIUM 8.9 mg/dL (8.5-10.1); CREATININE - SERUM 1.7 mg/dL (0.6-1.3); POTASSIUM - SERUM 3.8 mmol/L (3.5-5.1)
[2017-10-09 08:33] VITALS: BP 200/80
[2017-10-09 10:42] VITALS: Ht 165.1 cm; Wt 82.6 kg
[2017-10-09 10:52] LABS: APPEARANCE CLEAR (CLEAR); BILIRUBIN NEGATIVE (NEGATIVE); COLOR YELLOW (YELLOW); GLUCOSE NEGATIVE (NEGATIVE); KETONE NEGATIVE (NEGATIVE); NITRITE NEGATIVE (NEGATIVE); PROTEIN NEGATIVE (NEGATIVE); SPECIFIC GRAVITY 1.015 (1.005-1.020); UROBILINOGEN NORMAL (NORMAL)
[2017-10-09 15:37] VITALS: BP 128/65
[2017-10-09 21:09] VITALS: BP 143/80
[2017-10-10 05:31] VITALS: BP 127/6
[2017-10-10 08:36] VITALS: BP 122/75
[2017-10-10] MEDS ORDERED: PLAVIX75 MG PO (09:58)
== END 2017-10-10 10:47 | disposition home or self-care (01) | DRG 247 ==
LOC: OBSVTIME → D.M2 23:27 → D.OPS 23:27 → OBSVTIME 23:27 → UNDOADMOB 23:27 → D.M2 23:27 → EDSTATUS 10-07 09:30 → D.OPS 10-08 09:30 → D.M2 10-08 14:00 → D.OPS 10-10 09:30 → D.M2 10-10 10:47
PROVIDERS: Family Medicine; Internal Medicine Interventional Cardiology
PROC: 4A023N7 Measurement of Cardiac Sampling and Pressure, Left Heart, Percutaneous Approach (ICD-10-PCS; 2017-10-07)
PROC: B2121ZZ Fluoroscopy of Single Coronary Artery Bypass Graft using Low Osmolar Contrast (ICD-10-PCS; 2017-10-07)
PROC: B2181ZZ Fluoroscopy of Left Internal Mammary Bypass Graft using Low Osmolar Contrast (ICD-10-PCS; 2017-10-07)
PROC: B2151ZZ Fluoroscopy of Left Heart using Low Osmolar Contrast (ICD-10-PCS; 2017-10-07)
PROC: B2111ZZ Fluoroscopy of Multiple Coronary Arteries using Low Osmolar Contrast (ICD-10-PCS; 2017-10-07)
PROC: 027034Z Dilation of Coronary Artery, One Artery with Drug-eluting Intraluminal Device, Percutaneous Approach (ICD-10-PCS; principal; 2017-10-07 09:30)
PROC: 027034Z Dilation of Coronary Artery, One Artery with Drug-eluting Intraluminal Device, Percutaneous Approach (ICD-10-PCS; 2017-10-09)
DX: I21.4 Non-ST elevation (NSTEMI) myocardial infarction (principal); F05 Delirium due to known physiological condition; E78.5 Hyperlipidemia, unspecified; I10 Essential (primary) hypertension; G89.29 Other chronic pain; I25.110 Atherosclerotic heart disease of native coronary artery with unstable angina pectoris; Z95.0 Presence of cardiac pacemaker; Z86.73 Personal history of transient ischemic attack (TIA), and cerebral infarction without residual deficits